=== PATIENT | female | born 1980 | race Caucasian/White ===

== ENCOUNTER → 2017-12-14 19:31 | Outpatient (CLI) | payer OTHER, SELFPAY ==
--- NOTE | 2017-12-14 19:35 | DI.RAD.S_ITS ---
PROCEDURE: XR LUMBAR SPINE 2-3V INDICATIONS: Low back pain TECHNIQUE: 3 views of the lumbar spine were acquired. COMPARISON: None. FINDINGS: Bones: 5 [id number] vertebrae are present. There is normal bony alignment. No vertebral body compression fractures. No suspicious bony lesions. Mild degenerative endplate changes are noted at L3-4 through L5-S1 levels. Soft tissues: Overlying bowel gas pattern is normal. No suspicious soft tissue calcifications. IMPRESSION: Mild degenerative disc disease in mid to lower lumbar spine. No compression fracture or spondylolisthesis. Dictated by: Kevin Mathias M.D. on 12/14/2017 at 20:16 Approved by: Kevin Mathias M.D. on 12/14/2017 at 20:16
== END ==
PROVIDERS: Visit Provider Physician Assistant
DX: M51.36 Other intervertebral disc degeneration, lumbar region (principal)
CPT/HCPCS: 72100

== ENCOUNTER 2018-12-15 09:51 | Emergency (ER) | payer OTHER, SELFPAY ==
[2018-12-15 09:54] VITALS: BP 141/90; PULSE 78; RESP 20; TEMP 36.4; O2SAT 98
--- NOTE | 2018-12-15 09:58 | ED_ITS ---
HPI - General Adult General Chief complaint: Skin/Abscess/Foreign Body Stated complaint: Right Big Toe Pain Time Seen by Provider: 12/15/18 09:54 Source: patient Mode of arrival: ambulatory Limitations: no limitations History of Present Illness HPI narrative: 38-year-old female here for evaluation of approximately 30 days of redness and swelling to the inside aspect of her right great toe. She states that she thinks she has an ingrown toenail. Has not been evaluated in the past for this. Has never had an ingrown toenail in the past. She states that she has tried to take the toe nail out on her own however she is having quite a bit of discomfort even with standing at work. Related Data Previous Rx's Medication Instructions Recorded acetaminophen-codeine 1 tab PO Q6H PRN #7 tab 12/15/18 [Tylenol-Codeine #3] Allergies Allergy/AdvReac Type Severity Reaction Status Date / Time SULFA (sulfonamide) Allergy Severe KENNETH Uncoded 08/11/17 12:05 MT SYNDROME Latex Allergy Intermediate ITCHINESS Uncoded 08/11/17 12:05 Ibuprofen Allergy Mild SMALL Uncoded 08/11/17 12:05 RASHES W/ ITCHING Review of Systems Constitutional Denies fever(s) Musculoskeletal Denies tingling Comments: Pain to the right great toe Integumentary/Breasts Comments: Redness of the right great toe Neurologic Denies tingling Hematologic/Lymphatic Denies easy bleeding and Denies easy bruising FORMERLY [facility], [facility] Medical History Patient denies medical problems (Acute) Social History Smoking Status: Current some day smoker Social History Smoking Status: Current some day smoker Exam Initial Vital Signs Initial Vital Signs: Vital Signs Temperature 97.5 F L 12/15/18 09:54 Pulse Rate 78 12/15/18 09:54 Respiratory Rate 20 12/15/18 09:54 Blood Pressure 141/90 H 12/15/18 09:54 Pulse Oximetry 98 12/15/18 09:54 HENMT Head: normal to inspection and normocephalic Resp Effort & Inspection: normal respiratory effort Cardio Pulses: dorsalis pedis present on the right Skin Other: Redness along the lateral aspect of the right great toe Neuro Sensory Exam: no sensory deficits noted Extrem Other: Patient with redness and swelling to the lateral aspect of the right great toenail Procedures Nerve Block Nerve Block 1: Time out performed: Yes Local Anesthetic: lidocaine 1% Amount of anesthesia used (mL): 8 Side: right Nerve Blocks: other (Toe block) Procedure Successful: Yes Patient Tolerated Procedure: Well Complications: none Misc Procedure Name of Procedure: Ingrown toenail removed Side (if applicable): right Location: Lateral aspect of the right great toe Time out performed: Yes Technique/Description of procedure performed: Patient was anesthetized with approximately 8 cc of 1% lidocaine without epinephrine of the right great toe. The toenail was raised from the nail bed with an elevator. The lateral half of the toenail was then removed. Examination shows complete removal of the toena il. Patient tolerated procedure: Well and No complications Complications: none Course Orders Ordered: Discontinued Medications Lidocaine HCl (Xylocaine 1% (Pf)) 8 ml INJ NOW ONE Stop: 12/15/18 10:03 Last Admin: 12/15/18 10:11 Dose: 8 ml Vital Signs - 8 hr 12/15/18 09:54 Temperature 97.5 F L Pulse Rate 78 Respiratory Rate 20 Blood Pressure 141/90 H Pulse Oximetry 98 Medical Decision Making [facility] Narrative Medical decision making narrative: Patient's history and physical is consistent with an ingrown toenail on the lateral aspect of the right great toe. I did discuss options with the patient to include discharging home on antibiotics, removing the toenail here in the emergency department or discharging her to her primary doctor to have a referral to podiatry. The patient opted to have the toenail removed here in the ER. We did discuss risks and benefits to include pain, recurrence of the ingrown toenail, discoloration/deformity of the toenail upon regrowth. The patient expressed understanding of this. Toenail was removed without complication. Dressing was placed. No indication for antibiotics. Will send home with pain medication. She was given return precautions and follow-up instructions. She expressed understanding and agreement plan. Discharge Plan Departure Patient Disposition: Home Clinical Impression: Ingrowing toenail of right foot Instructions: DI for Ingrown Toenail Removal, DI for Ingrown Toenail Activity Restrictions/Additional Instructions: Take the medications as directed. Recommend you contact the health senior human resources representative here at the hospital at [phone] to help with establishing a primary provider. Return to the emergency department for any new or worsening symptoms. Prescriptions: New acetaminophen-codeine [Tylenol-Codeine #3] 300-30 mg tablet 1 tab PO Q6H PRN (Reason: pain) Qty: 7 RF: 0
[2018-12-15] MEDS: LIDOCAINE 1% (PF) INJ 8 ML INJ (10:11)
--- NOTE | 2018-12-15 11:00 | PC.NURSE ---
in grown toenail for 1.5months. Increase pain, swelling and redness. Pus drained at home.
[2018-12-15 11:07] VITALS: BP 128/76; PULSE 78; RESP 16; O2SAT 100
== END 2018-12-15 11:09 | disposition home or self-care (01) ==
PROVIDERS: Emergency Provider Emergency Medicine
DX: L60.0 Ingrowing nail (principal)
CPT/HCPCS: 11750; 64450; 99282; 99283

== ENCOUNTER → 2019-06-09 16:19 | Outpatient (CLI) | payer OTHER, SELFPAY ==
[2019-06-09 17:58] LABS: Add Manual Diff / Slide Review NO; Basophils Absolute Auto 0 /uL (0-100); Basophils Percent Auto 0.4 % (0-2); Eosinophils Absolute Auto 200 /uL (0-450); Eosinophils Percent Auto 1.3 % (2-4); Hematocrit 38.2 % (36-46); Hemoglobin 12.9 g/dL (12.0-16.0); Lymphocytes Absolute Auto 3200 /uL (1100-4500); Lymphocytes Percent Auto 25.3 % (25-40); Mean Corpuscular HGB Conc 33.9 % (30-36); Mean Corpuscular Hemoglobin 30.6 PG (26-34); Mean Corpuscular Volume 90.5 fL (80-100); Monocytes Absolute Auto 600 /uL (0-900); Monocytes Percent Auto 5.2 % (3-14); Neutrophils Absolute Auto 8500 /uL (1500-7000); Neutrophils Percent Auto 67.8 % (50-75); Platelet Count 297 X10^3/uL (150-400); Red Blood Cell Count 4.22 X10^6/uL (4.0-5.2); Red Cell Distribution Width 13.5 % (11.6-14.8); White Blood Cell Count 12.5 X10^3/uL (4.5-11.0)
[2019-06-09 18:09] LABS: Appearance Urine UA CLOUDY; Bilirubin Urine UA NEGATIVE (NEGATIVE); Color Urine UA YELLOW; Glucose Urine UA NEGATIVE (Negative); Ketones Urine UA NEGATIVE (NEGATIVE); Leukocyte Esterase Urine UA TRACE (NEGATIVE); Nitrite Urine UA NEGATIVE (Negative); Occult Blood Urine UA 2+ (Negative); Protein Urine UA NEGATIVE (Negative); Specific Gravity Urine UA 1.025 (1.000-1.035); Urobilinogen Urine UA 0.2 E.U./dL (0.2)
[2019-06-09 18:10] LABS: Glucose 113 mg/dL (70-100)
[2019-06-09 18:11] LABS: Hemoglobin A1C% w Est Avg Glu 5.4 % (4.0-6.0)
[2019-06-09 18:19] LABS: Prothrombin Time 11.9 SECONDS (10.1-12.7)
[2019-06-09 18:22] LABS: PTT Partial Thromboplastin Tim 28 SECONDS (26.4-36.2)
[2019-06-09 18:23] LABS: pH Urine UA 5.5 (4.5-8.0)
[2019-06-09 18:27] LABS: RBC Urine 1-5/HPF (0-5/HPF); Squamous Epithelial Cell Urine 5-10 /HPF (0-5/HPF); WBC Urine 5-10/HPF (0-5/HPF)
[2019-06-09 18:28] LABS: Amorphous Sediment Urine 2+; Bacteria Urine Occasional (0-1); Mucus Urine 2+ (Negative)
[2019-06-09 18:43] LABS: Hepatitis B Surface Antigen NEGATIVE s/c (NEGATIVE); Rubella Antibody IgG 11.2 IU/mL (>15)
[2019-06-09 19:01] LABS: HIV 1 & 2 Ab/Ag 4th Gen Combo NEGATIVE (NEGATIVE); Hep C Virus Ab w/Reflex Quant NEGATIVE s/c (NEGATIVE)
[2019-06-11 18:17] LABS: RPR Screen Nonreactive (Nonreactive)
[2019-06-13 22:49] LABS: Cardiolipin Ab IgG < 14 GPL; Cardiolipin Ab IgM < 12 MPL; PTT-LA Screen 37 seconds (< OR = 40)
[2019-06-14 10:20] LABS: dRVVT Screen 47 seconds (< OR = 45)
== END ==
DX: Z34.81 Encounter for supervision of other normal pregnancy, first trimester (principal); D68.61 Antiphospholipid syndrome
CPT/HCPCS: 36415; 80055; 81003; 81015; 82947; 83036; 85597; 85610; 85613; 85730; 86147; 86787; 86803; 86850; 86900; 86901; 87086; 87389

== ENCOUNTER 2019-06-11 06:02 | Emergency (ER) | payer OTHER, SELFPAY ==
[2019-06-11 06:10] VITALS: BP 133/75; PULSE 85; RESP 15; TEMP 36.6; O2SAT 99; BMI 36.6
--- NOTE | 2019-06-11 06:53 | DI.US.S_ITS ---
PROCEDURE: US OB <= 14 WEEKS FETUS INDICATIONS: 8 WKS PREG W/BLEED, R/O ECTOPIC/MISCARRIAGE OUTSIDE/PRIOR DATING DATA: Last menstrual period (LMP): 04/14/19. LMP-based estimated date of delivery (LOLI): 01/19/20. First dating scan (date and location): 06/09/19. Estimated date of delivery (LOLI) from first dating scan: 01/19/20. TECHNIQUE: Real-time scanning was performed of the fetus and maternal pelvic organs, with image documentation. COMPARISON: [facility], US, US OB <= 14 WEEKS FETUS, 06/09/2019, 16:11. FINDINGS: Embryo: A single intrauterine is identified. [place]-rump length is well visualized, which measures approximately 1.6 cm, correlating with an estimated gestational age of 8 weeks 0 days. Cardiac motion was detected at 171 beats per minute. A yolk sac is well-visualized. A small subchorionic hemorrhage appears to be present along the superior aspect of the gestational sac measuring 1.3 x 0.6 x 1.5 cm. Maternal organs: There probably is a corpus luteum on the right maternal ovary. The left maternal ovary has been removed. A uterine fibroid is evident. Limited images through the kidneys demonstrate no hydronephrosis. IMPRESSION: 1. Single live intrauterine at 8 weeks 0 days (sonographic LOLI 01/19/20) is concordant with the clinical due dates. 2. Small subchorionic/implantation hemorrhage. Dictated by: Luke Victoria M.D. on 06/11/2019 at 7:38 Approved by: Luke Victoria M.D. on 06/11/2019 at 7:41
--- NOTE | 2019-06-11 07:11 | ED_ITS ---
HPI - General Chief complaint: OB/Uterine Contractions Stated complaint: bleeding heavily/eight weeks Time Seen by Provider: 06/11/19 06:57 Source: patient Mode of arrival: Ambulatory Limitations: no limitations History of Present Illness HPI Narrative: Patient is a 38-year-old female currently 8 weeks presenting with bright red vaginal bleeding which started about midnight last ni ght. She has some mild cramps. She denies any nausea. MD Complaint: abdominal pain and vaginal bleeding Onset (ago): hour(s) Pain Consistency: constant Patient : Yes Related Data Allergies Allergy/AdvReac Type Severity Reaction Status Date / Time SULFA (sulfonamide) Allergy Severe KENNETH Uncoded 06/09/19 15:50 MT SYNDROME Latex Allergy Intermediate ITCHINESS Uncoded 06/09/19 15:50 Ibuprofen Allergy Mild SMALL Uncoded 06/09/19 15:50 RASHES W/ ITCHING Review of Systems Review of Systems Narrative: GENERAL: Denies chills, fatigue, malaise, fever, sweats, travel HEENT: Denies sinus pain, ear pain, sore throat, difficulty swallowing, neck pain RESPIRATORY: Denies dyspnea, cough, wheezing, hemoptysis, sputum. CARDIOVASCULAR: Denies chest pain, palpitations, orthopnea, edema GASTROINTESTINAL: Denies nausea, vomiting, abdominal pain, diarrhea, constipation, melena. : Denies dysuria, frequency, incontinence, hematuria, urinary retention, flank pain. CHAPLAIN RESIDENT: See HPI MUSCULOSKELETAL: Denies weakness, joint pain, or bony pain SKIN: No rash, no erythema, no pruritus NEUROLOGIC: Denies weakness, dizziness, headache, numbness, change in speech, confusion PSYCHIATRIC: No concerning psychosocial issues. 12 point review of systems is negative except for those stated above and HPI PMFSH - Past Medical History Additional medical history: 1. AMA Multip Dx Code : O09.529 - PA initiated today. 2. H/O Gestational Diabetes X 2 's. 3. H/O Induced Hypertension. 4. H/O Antiphospholipid Antibody Syndrome : with first and subsequent loss at 17 weeks with management at . Patient : Yes Exam Initial Vital Signs Initial Vital Signs: Vital Signs Temperature 97.8 F 06/11/19 06:10 Pulse Rate 85 06/11/19 06:10 Respiratory Rate 15 06/11/19 06:10 Blood Pressure 133/75 06/11/19 06:10 Pulse Oximetry 99 06/11/19 06:10 GENERAL: Overweight well-appearing female and in no acute distress. HEENT: Head atraumatic,EOMI, pupils reactive, face symmetric, moist mucous membranes CARDIOVASCULAR: Regular rate and rhythm without murmurs, rubs or gallops. RESPIRATORY: Breath sounds equal bilaterally, no wheezes rales or rhonchi. ABDOMEN: Soft, nontender. Normoactive bowel sounds all 4 quadrants. No guarding or rebound. EXTREMITIES: Normal range of motion, no clubbing or edema. Neurovascularly intact NEUROLOGICAL: Alert and oriented x4.Normal gait and speech. Cranial nerves II through XII grossly intact. SKIN: Warm, dry, no laceration, no petechiae, no rashes or lesions. Course Orders Ordered: ED Orders 06/11/19 06:53 US OB <= 14 weeks fetus Stat 06/11/19 08:19 CMP [Comprehensive Metabolic Panel] Stat Complete Blood Count AUTO DIFF Stat HCG Quantitative /Beta subunit Stat Vital Signs Vital signs: Vital Signs - 8 hr 06/11/19 06:10 06/11/19 09:58 Temperature 97.8 F Pulse Rate 85 80 Respiratory Rate 15 18 Blood Pressure 133/75 149/73 H Pulse Oximetry 99 100 MDM - OB/Uterine Contractions Lab Data Attestation: I reviewed the patient's lab results. Lab results narrative: Records state that she is O positive with negative antibody screen. Result diagrams: 06/11/19 08:19 06/11/19 08:19 Labs: Lab Results 06/11/19 06/11/19 06/11/19 Range/Units 08:19 08:19 08:19 WBC 13.8 H (4.5-11.0) X10^3/uL RBC 4.13 (4.0-5.2) X10^6/uL Hgb 12.4 (12.0-16.0) g/dL Hct 37.1 (36-46) % MCV 89.7 (80-100) fL MCH 30.1 (26-34) PG MCHC 33.6 (30-36) % RDW 13.5 (11.6-14.8) % Plt Count 317 (150-400) X10^3/uL Neut % (Auto) 76.2 H (50-75) % Lymph % (Auto) 17.9 L (25-40) % [place] % (Auto) 4.4 (3-14) % Eos % (Auto) 1.0 L (2-4) % Baso % (Auto) 0.5 (0-2) % Neut # (Auto) 83190 H (6356-8835) /uL Lymph # (Auto) 2500 (0843-2299) /uL [place] # (Auto) 600 (0-900) /uL Eos # (Auto) 100 (0-450) /uL Baso # (Auto) 100 (0-100) /uL Sodium 137 (137-145) mmol/L Potassium 4.3 (3.4-5.1) mmol/L Chloride 102 (98-107) mmol/L Carbon Dioxide 26 (22-32) mmol/L BUN 9 (7-17) mg/dL Creatinine 0.60 (0.52-1.04) mg/dL Estimated GFR > 60.0 (>60) mL/min BUN/Creatinine Ratio 15.0 (6-22) Glucose 111 H (70-100) mg/dL Calcium 9.6 (8.4-10.2) mg/dL Total Bilirubin 0.2 (0.2-1.3) mg/dL AST 20 (14-36) IU/L ALT 13 (<35) IU/L Alkaline Phosphatase 99 (38-126) U/L Total Protein 7.7 (6.3-8.2) g/dL Albumin 4.0 (3.5-5.0) g/dL Globulin 3.7 (1.7-4.1) g/dL Albumin/Globulin Ratio 1.1 (1.0-2.8) HCG, Quant 25858 mIU/mL Point of Care Testing Test Results Positive Urine Dip Bedside Urine Glucose Negative Bedside Urine Bilirubin - Negative Bedside Urine Ketone - Negative Urine Specific [place] 1.015 Bedside Urine Occult Blood ++ Bedside Urine pH 6.0 Bedside Urine Protein - Negative Bedside Urine Urobilinogen - Negative Bedside Urine Nitrite - Negative Bedside Urine Leukocytes - Negative Esterase Imaging Data US - OB: Radiologist's Impression: PROCEDURE: US OB <= 14 WEEKS FETUS INDICATIONS: 8 WKS PREG W/BLEED, R/O ECTOPIC/MISCARRIAGE OUTSIDE/PRIOR DATING DATA: Last menstrual period (LMP): 04/14/19. LMP-based estimated date of delivery (LOLI): 01/19/20. First dating scan (date and location): 06/09/19. Estimated date of delivery (LOLI) from first dating scan: 01/19/20. TECHNIQUE: Real-time scanning was performed of the fetus and maternal pelvic organs, with image documentation. COMPARISON: [facility], US, US OB <= 14 WEEKS FETUS, 06/09/2019, 16:11. FINDINGS: Embryo: A single intrauterine is identified. [place]-rump length is well visualized, which measures approximately 1.6 cm, correlating with an estimated gestational age of 8 weeks 0 days. Cardiac motion was detected at 171 beats per minute. A yolk sac is well-visualized. A small subchorionic hemorrhage appears to be present along the superior aspect of the gestational sac measuring 1.3 x 0.6 x 1.5 cm. Maternal organs: There probably is a corpus luteum on the right maternal ovary. The left maternal ovary has been removed. A uterine fibroid is evident. Limited images through the kidneys demonstrate no hydronephrosis. IMPRESSION: 1. Single live intrauterine at 8 weeks 0 days (sonographic LOLI 01/19/20) is concordant with the clinical due dates. 2. Small subchorionic/implantation hemorrhage. Dictated by: Luke Victoria M.D. on 06/11/2019 at 7:38 MDM Narrative Medical decision making narrative: Patient not needing anything for pain. I have discussed results with both her and her recommend outpatient repeat hCG in 48 hours. Ultrasound is overall reassuring. Discharge Plan Departure Patient Disposition: Home Clinical Impression: , threatened Discharge Date/Time: 06/11/19 09:58 Instructions: DI for Threatened Activity Restrictions/Additional Instructions: *You have been diagnosed with threatened *What to do: At this time you have what is called a subchorionic hemorrhage. This should resolve on its own. However at this time is still need repeat hCG with her primary OBGYN in 48 hours-on 06/13/2019, Dr. Reddy should be able to order this for you. Please call him tomorrow *Continue to take medications as directed vitamins once daily Tylenol 1000 mg every 6 hours if needed for cramping *Follow up with your primary care provider in 2-3 days *Return to ER if you should have increased vaginal bleeding, pain or any new, worsening or concerning symptoms Referrals: Ben Reddy MD [Physician] -
[2019-06-11 08:28] LABS: Add Manual Diff / Slide Review NO; Basophils Absolute Auto 100 /uL (0-100); Basophils Percent Auto 0.5 % (0-2); Eosinophils Absolute Auto 100 /uL (0-450); Hematocrit 37.1 % (36-46); Hemoglobin 12.4 g/dL (12.0-16.0); Lymphocytes Absolute Auto 2500 /uL (1100-4500); Lymphocytes Percent Auto 17.9 % (25-40); Mean Corpuscular HGB Conc 33.6 % (30-36); Mean Corpuscular Hemoglobin 30.1 PG (26-34); Mean Corpuscular Volume 89.7 fL (80-100); Monocytes Absolute Auto 600 /uL (0-900); Monocytes Percent Auto 4.4 % (3-14); Neutrophils Absolute Auto 10500 /uL (1500-7000); Neutrophils Percent Auto 76.2 % (50-75); Platelet Count 317 X10^3/uL (150-400); Red Blood Cell Count 4.13 X10^6/uL (4.0-5.2); Red Cell Distribution Width 13.5 % (11.6-14.8); White Blood Cell Count 13.8 X10^3/uL (4.5-11.0)
[2019-06-11 08:38] LABS: Alanine Aminotransferase 13 IU/L (<35); Albumin Globulin Ratio 1.1 (1.0-2.8); Alkaline Phosphatase 99 U/L (38-126); Aspartate Aminotransferase 20 IU/L (14-36); Bilirubin Total 0.2 mg/dL (0.2-1.3); Blood Urea Nitrogen 9 mg/dL (7-17); Calcium 9.6 mg/dL (8.4-10.2); Carbon Dioxide 26 mmol/L (22-32); Chloride 102 mmol/L (98-107); Estimated Glomerular Filt Rate > 60.0 mL/min (>60); Globulin 3.7 g/dL (1.7-4.1); Glucose 111 mg/dL (70-100); HEMOLYSIS < 15 (0-50); Potassium 4.3 mmol/L (3.4-5.1); Sodium 137 mmol/L (137-145); Total Protein 7.7 g/dL (6.3-8.2)
[2019-06-11 09:20] LABS: HCG Quantitative /Beta subunit 37502 mIU/mL
[2019-06-11 09:58] VITALS: BP 149/73; PULSE 80; RESP 18; O2SAT 100
== END 2019-06-11 09:58 | disposition home or self-care (01) ==
PROVIDERS: Emergency Medicine; Emergency Provider Emergency Medicine
DX: O20.0 Threatened abortion (principal); Z3A.08 8 weeks gestation of pregnancy
CPT/HCPCS: 36415; 76801; 80053; 81003; 81025; 84702; 85025; 99283; 99284

== ENCOUNTER → 2019-06-13 17:16 | Outpatient (CLI) | payer OTHER, SELFPAY ==
[2019-06-13 18:18] LABS: INR 1.1 (0.9-1.3); Prothrombin Time 12.4 SECONDS (10.1-12.7)
[2019-06-18 22:44] LABS: Cardiolipin Ab IgG < 14 GPL; Cardiolipin Ab IgM < 12 MPL; PTT-LA Screen 35 seconds (< OR = 40); dRVVT Screen 39 seconds (< OR = 45)
[2019-06-19 10:02] LABS: Cardiolipin Ab IgA < 11
== END ==
DX: D68.61 Antiphospholipid syndrome (principal); Z11.3 Encounter for screening for infections with a predominantly sexual mode of transmission; Z12.4 Encounter for screening for malignant neoplasm of cervix
CPT/HCPCS: 36415; 85597; 85610; 85613; 85730; 86147

== ENCOUNTER → 2019-07-10 11:41 | Outpatient (CLI) | payer OTHER, SELFPAY | LOC: LAB 11:43 | DX: Z34.81 Encounter for supervision of other normal pregnancy, first trimester (principal); Z3A.12 12 weeks gestation of pregnancy | CPT/HCPCS: 36415; 84163; 84702 ==

== ENCOUNTER → 2019-08-18 11:18 | Outpatient (CLI) | payer OTHER, SELFPAY ==
[2019-08-23 11:04] LABS: Sequential Screen 2nd Trimeste SCREEN NEGATIVE
== END ==
DX: O09.522 Supervision of elderly multigravida, second trimester (principal); Z36.0 Encounter for antenatal screening for chromosomal anomalies; Z3A.18 18 weeks gestation of pregnancy
CPT/HCPCS: 36415; 82105; 82677; 84163; 84702; 86336

== ENCOUNTER → 2019-09-08 09:08 | Outpatient (CLI) | payer OTHER, SELFPAY ==
--- NOTE | 2019-09-08 09:09 | DI.US.S_ITS ---
PROCEDURE: US OB >= 14 WEEKS FETUS INDICATIONS: ANATOMY OUTSIDE/PRIOR DATING DATA: Last menstrual period (LMP): 04/13/19. LMP-based estimated date of delivery (LOLI): 01/19/20. First dating scan (date and location): 07/10/19. Estimated date of delivery (LOLI) from first dating scan: 01/20/20. TECHNIQUE: Real-time scanning was performed of the fetus, with image documentation and biometric measurements. Endovaginal scanning: Performed COMPARISON: None. FINDINGS: General: A single living intrauterine gestation is present. Presentation: Breech Placenta: Placental position is anterior, without previa. Amniotic fluid index: 12.7 cm, normal range is 5-24 cm. heart rate: 158 beats per minute. Maternal cervical canal: 4.3 cm long. Normal lower limit is 2.5 cm. biometrics: Biparietal diameter: 19 weeks 6 days Head circumference: 20 weeks 5 days Abdominal circumference: 21 weeks 4 days Femur length: 21 weeks 2 days Estimated gestational age from initial scan: 20 weeks 6 days Composite gestational age from present scan: 20 weeks 6 days Estimated weight and percentile: 413 g; 69th percentile Measurement variability for biometric dating: +/- 7 days from 14 weeks to 15 weeks 6 days gestation, +/- 10 days from 16 weeks to 21 weeks 6 days gestation, +/- 2 weeks from 22 weeks to 27 weeks 6 days gestation, +/- 3 weeks for 28 weeks gestation or later. weight reference: 4500 g or EFW >90/95% is considered macrosomia or large for gestational age. EFW <10% is small for gestational age. EFW 5% or less is considered intra-uterine growth restriction. Anatomic survey: Neuro: Ventricles are non-dilated at less than 10 mm. Cisterna magna is normal at 3-11 mm. Cerebellum is normal in size and morphology. 8mm right choroid plexus cyst. Nuchal skin fold: Normal at less than 6 mm between 14-21 weeks gestational age. Face: Nose and lips, facial profile are normal. Spine: No evidence for spina bifida. Heart: 4-chambered heart is present. The ventricular outflow tracts are not well visualized and cannot be evaluated. Diaphragm: Diaphragm is intact. Stomach: Left-sided stomach is present. Kidneys: No hydronephrosis. Normal is less than 5 mm in 2nd trimester, less than 7 mm in 3rd trimester. Cord: 3-vessel cord has orthotopic insertion. Bladder: Normal in size. Extremities: All 4 extremities identified. IMPRESSION: 1. Single living intrauterine fetus with appropriate interval growth. 2. Cardiac outflow tracts are not well visualized and cannot be evaluated. 3. 8mm right choroid plexus cyst. 4. anatomic survey otherwise normal. Dictated by: Martita Jones MD, PhD on 09/08/2019 at 11:24 Approved by: Martita Jones MD, PhD on 09/08/2019 at 11:30
== END ==
LOC: US 09:09
PROVIDERS: Referring Provider Obstetrics & Gynecology; Visit Provider Obstetrics & Gynecology
DX: Z36.89 Encounter for other specified antenatal screening (principal); Z3A.20 20 weeks gestation of pregnancy
CPT/HCPCS: 76811

== ENCOUNTER → 2019-11-02 08:54 | Outpatient (CLI) | payer OTHER, SELFPAY ==
[2019-11-02 10:28] LABS: Hematocrit 34.9 % (36-46)
[2019-11-02 10:30] LABS: GTT (PREG) 1 Hour PP 50gm Dose 171 mg/dL (76-139)
== END ==
DX: Z34.82 Encounter for supervision of other normal pregnancy, second trimester (principal); Z3A.25 25 weeks gestation of pregnancy
CPT/HCPCS: 36415; 82950; 85014; 85018

== ENCOUNTER → 2019-12-07 08:03 | Outpatient (CLI) | payer OTHER, SELFPAY ==
[2019-12-07 09:31] LABS: Glucose Fasting Gestational 92 mg/dL (76-95)
[2019-12-07 10:33] LABS: Glucose 1 Hour Gest 185 mg/dL (76-180)
[2019-12-07 11:21] LABS: Glucose Tol Interp,Gestational INTERPRETATION
[2019-12-07 12:09] LABS: Glucose 2 Hour Gest 136 mg/dL (76-155)
[2019-12-07 13:42] LABS: Glucose 3 Hour Gest 127 mg/dL (76-140)
== END ==
DX: O99.810 Abnormal glucose complicating pregnancy (principal)
CPT/HCPCS: 36415; 82951; 82952

== ENCOUNTER → 2019-12-14 11:24 | Outpatient (CLI) | payer OTHER, SELFPAY ==
[2019-12-14 12:39] LABS: Add Manual Diff / Slide Review NO; Basophils Absolute Auto 0 /uL (0-100); Basophils Percent Auto 0.2 % (0-2); Eosinophils Absolute Auto 100 /uL (0-450); Eosinophils Percent Auto 0.6 % (2-4); Hematocrit 35.1 % (36-46); Lymphocytes Absolute Auto 1800 /uL (1100-4500); Lymphocytes Percent Auto 19.8 % (25-40); Mean Corpuscular HGB Conc 34.1 % (30-36); Mean Corpuscular Hemoglobin 31.1 PG (26-34); Mean Corpuscular Volume 91.3 fL (80-100); Monocytes Absolute Auto 500 /uL (0-900); Monocytes Percent Auto 5.6 % (3-14); Neutrophils Absolute Auto 6800 /uL (1500-7000); Neutrophils Percent Auto 73.8 % (50-75); Platelet Count 254 X10^3/uL (150-400); Red Blood Cell Count 3.84 X10^6/uL (4.0-5.2); Red Cell Distribution Width 13.4 % (11.6-14.8); White Blood Cell Count 9.3 X10^3/uL (4.5-11.0)
[2019-12-14 13:07] LABS: Aspartate Aminotransferase 18 IU/L (14-36); BUN Creatinine Ratio 15.6 (6-22); Blood Urea Nitrogen 7 mg/dL (7-17); Estimated Glomerular Filt Rate > 60.0 mL/min (>60); Uric Acid 4.4 mg/dL (2.5-6.2)
== END ==
PROVIDERS: Referring Provider Obstetrics & Gynecology; Visit Provider Obstetrics & Gynecology
DX: O16.9 Unspecified maternal hypertension, unspecified trimester (principal)
CPT/HCPCS: 36415; 84450; 84550; 85025

== ENCOUNTER → 2019-12-22 10:50 | Outpatient (CLI) | payer OTHER, SELFPAY ==
[2019-12-23 08:04] LABS: Strep Grp B PCR NEG for Grp B Strep
== END ==
PROVIDERS: Visit Provider Obstetrics & Gynecology
DX: Z34.83 Encounter for supervision of other normal pregnancy, third trimester (principal); Z3A.36 36 weeks gestation of pregnancy
CPT/HCPCS: 87653

== ENCOUNTER 2019-12-29 10:46 | Observation (INO) | payer OTHER, SELFPAY ==
[2019-12-29 11:46] LABS: Add Manual Diff / Slide Review NO; Basophils Absolute Auto 100 /uL (0-100); Basophils Percent Auto 0.5 % (0-2); Eosinophils Absolute Auto 100 /uL (0-450); Eosinophils Percent Auto 0.7 % (2-4); Hematocrit 34.4 % (36-46); Hemoglobin 11.6 g/dL (12.0-16.0); Lymphocytes Absolute Auto 2100 /uL (1100-4500); Lymphocytes Percent Auto 19.8 % (25-40); Mean Corpuscular HGB Conc 33.8 % (30-36); Mean Corpuscular Hemoglobin 30.8 PG (26-34); Mean Corpuscular Volume 91.1 fL (80-100); Monocytes Absolute Auto 600 /uL (0-900); Monocytes Percent Auto 5.9 % (3-14); Neutrophils Absolute Auto 7600 /uL (1500-7000); Neutrophils Percent Auto 73.1 % (50-75); Platelet Count 237 X10^3/uL (150-400); Red Blood Cell Count 3.77 X10^6/uL (4.0-5.2); Red Cell Distribution Width 13.5 % (11.6-14.8); White Blood Cell Count 10.4 X10^3/uL (4.5-11.0)
[2019-12-29 11:56] LABS: Aspartate Aminotransferase 15 IU/L (14-36); BUN Creatinine Ratio 10.9 (6-22); Blood Urea Nitrogen 6 mg/dL (7-17); Estimated Glomerular Filt Rate > 60.0 mL/min (>60); Uric Acid 3.8 mg/dL (2.5-6.2)
[2019-12-29 12:29] LABS: Creatinine Urine Random 219.2 mg/dL; Protein (Total) Urine Random 7 mg/dL (0-12); Protein Creatinine Ratio Urine 0.03 GRAM/24H
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
== END 2019-12-29 12:45 | disposition home or self-care (01) ==
PROVIDERS: Admitting Provider Obstetrics & Gynecology; PCP Obstetrics & Gynecology; Referring Provider Obstetrics & Gynecology; Visit Provider Obstetrics & Gynecology
DX: O13.3 Gestational [pregnancy-induced] hypertension without significant proteinuria, third trimester (principal); Z3A.37 37 weeks gestation of pregnancy
CPT/HCPCS: 36415; 59025; 82570; 84156; 84450; 84550; 85025; G0378; G0379

== ENCOUNTER 2019-12-31 13:51 | Outpatient (CLI) | payer OTHER, SELFPAY ==
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
== END 2019-12-31 14:30 | disposition home or self-care (01) ==
LOC: LABOR 13:55 → OB 01-01 12:29
PROVIDERS: PCP Obstetrics & Gynecology; Referring Provider Obstetrics & Gynecology; Visit Provider Obstetrics & Gynecology
DX: O47.1 False labor at or after 37 completed weeks of gestation (principal); R51 Headache; Z3A.37 37 weeks gestation of pregnancy
CPT/HCPCS: 59025; G0378; G0379

== ENCOUNTER 2020-01-05 10:48 | Outpatient (CLI) | payer OTHER, SELFPAY ==
[2020-01-05 11:52] LABS: Creatinine Urine Random 216.2 mg/dL; Protein (Total) Urine Random 6 mg/dL (0-12); Protein Creatinine Ratio Urine 0.02 GRAM/24H
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
== END 2020-01-05 12:19 | disposition home or self-care (01) ==
LOC: LABOR 11:32 → OB 01-09 11:45
PROVIDERS: PCP Obstetrics & Gynecology; Referring Provider Obstetrics & Gynecology; Visit Provider Obstetrics & Gynecology
DX: O13.3 Gestational [pregnancy-induced] hypertension without significant proteinuria, third trimester (principal); Z3A.38 38 weeks gestation of pregnancy
CPT/HCPCS: 59025; 59050; 82570; 84156; G0378; G0379

== ENCOUNTER → 2020-01-08 11:22 | Outpatient (CLI) | payer OTHER, SELFPAY ==
[2020-01-09 18:12] LABS: COVID19 Sendout Not Detected (Not Detect)
== END ==
PROVIDERS: PCP Obstetrics & Gynecology; Visit Provider Nurse Practitioner
DX: Z11.59 Encounter for screening for other viral diseases (principal)
CPT/HCPCS: 87635

== ENCOUNTER 2020-01-10 14:50 | Inpatient (IN) | payer OTHER, SELFPAY ==
[2020-01-10 17:00] LABS: Add Manual Diff / Slide Review NO; Basophils Absolute Auto 0 /uL (0-100); Basophils Percent Auto 0.2 % (0-2); Eosinophils Absolute Auto 100 /uL (0-450); Eosinophils Percent Auto 0.7 % (2-4); Hematocrit 34.1 % (36-46); Hemoglobin 11.4 g/dL (12.0-16.0); Lymphocytes Absolute Auto 2000 /uL (1100-4500); Lymphocytes Percent Auto 19.5 % (25-40); Mean Corpuscular HGB Conc 33.5 % (30-36); Mean Corpuscular Hemoglobin 30.7 PG (26-34); Mean Corpuscular Volume 91.7 fL (80-100); Monocytes Absolute Auto 700 /uL (0-900); Monocytes Percent Auto 6.5 % (3-14); Neutrophils Absolute Auto 7600 /uL (1500-7000); Neutrophils Percent Auto 73.1 % (50-75); Platelet Count 267 X10^3/uL (150-400); Red Blood Cell Count 3.72 X10^6/uL (4.0-5.2); Red Cell Distribution Width 13.7 % (11.6-14.8); White Blood Cell Count 10.3 X10^3/uL (4.5-11.0)
[2020-01-10 17:22] VITALS: BP 133/74
[2020-01-10 17:31] LABS: Aspartate Aminotransferase 18 IU/L (14-36); BUN Creatinine Ratio 20.8 (6-22); Blood Urea Nitrogen 10 mg/dL (7-17); Estimated Glomerular Filt Rate > 60.0 mL/min (>60); Uric Acid 3.8 mg/dL (2.5-6.2)
[2020-01-10] MEDS: DINOPROSTONE VAG (CERVIDIL) 10 MG VAG (18:16)
[2020-01-10] MEDS: LACTATED RINGERS 1,000 ML 100 ML IV (19:02)
[2020-01-10 21:21] VITALS: BP 125/69; PULSE 74
[2020-01-10] MEDS: LABETALOL 100 MG TABLET PO (21:21)
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
[2020-01-11] MEDS: LACTATED RINGERS 1,000 ML 100 ML IV (10:15)
[2020-01-11] MEDS: OXYTOCIN PREMIX 30 UNIT/500 ML PLAST..BAG IV (10:39)
--- NOTE | 2020-01-11 13:49 | PM.OBPNLAB ---
Date/Time Date Patient Seen: 01/11/20 Time Patient Seen: 13:49 Pain Control Pain control: tolerating well Comments: Patient comfortable Pelvic Exam Dilation (cm): 1 Effacement (%): 80 station: -3 Amniotic membrane status: Intact Contractions Pitocin rate (mU/min): 12 Contraction frequency (min): 3 Contraction pattern: Regular Status status: Category l Heart Rate Baseline: 135 Monitor Accelerations: Present Monitor Decelerations: Absent Monitor Variability: Moderate Assessment and Plan Assessment: induction ongoing Plan: continuous present management Comments: Attempted Rockwell balloon placement, Rockwell bulb could not be placed. Plan to continue Pitocin until this evening, will reassess further cervical ripening overnight.
--- NOTE | 2020-01-11 18:09 | PM.OBPNLAB ---
Date/Time Date Patient Seen: 01/11/20 Time Patient Seen: 18:09 Pain Control Pain control: tolerating well Comments: Sleeping through contractions Pelvic Exam Dilation (cm): 1 Effacement (%): 80 station: -3 Amniotic membrane status: Intact Comments: Chicas balloon placed (non latex) with 50ccs saline Contractions Pitocin rate (mU/min): 0 Contraction frequency (min): 3 Contraction pattern: Regular Status status: Category ll Heart Rate Baseline: 135 Monitor Accelerations: Present Monitor Decelerations: Variable Monitor Variability: Moderate Comments: rare variables with +scalp stim, moderate variability and accelerations Assessment and Plan Assessment: induction ongoing Plan: other Comments: Given minimal cervical change with pitocin today with frequent contractions, patient requires further cervical ripening. We will proceed with oral cytotec and a transcervical chicas bulb overnight.
[2020-01-11] MEDS: miSOPROStoL 25 MCG TABLET 50 MCG PO ×2 (19:09→23:08)
[2020-01-12] MEDS: miSOPROStoL 25 MCG TABLET 50 MCG PO (03:17)
--- NOTE | 2020-01-12 07:57 | PM.OBPNLAB ---
Date/Time Date Patient Seen: 01/12/20 Time Patient Seen: 07:57 Pain Control Pain control: tolerating well Comments: 132/67, HR 79 Pelvic Exam Dilation (cm): 3 Effacement (%): 80 station: -3 Amniotic membrane status: Intact Comments: Rockwell bulb fell out between 1 and 3 AM. Patient received 3x PO cytotec overnight, is Contractions Contractions on admission: regular Contraction frequency (min): 4 Contraction pattern: Regular Status status: Category ll Heart Rate Baseline: 145 Monitor Accelerations: Present Monitor Decelerations: Late Comments: Patient having intermittent and highly positional late decelerations in the setting of +scalp stim, +mod variability, +accels. Assessment and Plan Assessment: induction ongoing Comments: This patient has a favorable cervix this AM and is for pitocin augmentation. We discussed the late decelerations and that she requires pitocin to contract and progress, but that this would be closely monitored and may not be tolerated by the baby. The patient is aware, and we plan to proceed with pitocin per protocol this AM.
[2020-01-12] MEDS: LACTATED RINGERS 1,000 ML 100 ML IV ×2 (08:54→17:49)
[2020-01-12] MEDS: OXYTOCIN PREMIX 30 UNIT/500 ML PLAST..BAG IV (08:54)
[2020-01-12] MEDS: LABETALOL 100 MG TABLET PO (08:54)
--- NOTE | 2020-01-12 10:49 | PM.OBPNLAB ---
Date/Time Date Patient Seen: 01/12/20 Time Patient Seen: 10:30 Pain Control Pain control: tolerating well Pelvic Exam Dilation (cm): 3 Effacement (%): 80 station: -3 Amniotic membrane status: Intact Contractions Pitocin rate (mU/min): 0 Contraction frequency (min): 4 Contraction pattern: Regular Status status: Category ll Heart Rate Baseline: 135 Monitor Accelerations: Absent Monitor Decelerations: Late Monitor Variability: Minimal Comments: pitocin turned off, variability recovering Assessment and Plan Assessment: induction ongoing Plan: continuous present management Comments: This patient is not making cervical change, with recurrent late decelerations and minimal variability when the pitocin is titrated up. Discussed risks of ongoing induction with patient vs proceeding to c section. Will allow fetus to recover and continue low dose pitocin augmentation.
--- NOTE | 2020-01-12 15:00 | PM.OBPNLAB ---
Date/Time Date Patient Seen: 01/12/20 Time Patient Seen: 15:00 Pain Control Pain control: tolerating well Pelvic Exam Dilation (cm): 3 Effacement (%): 80 station: -3 Amniotic membrane status: Intact Comments: posterior Contractions Pitocin rate (mU/min): 0 Contraction frequency (min): 4 Contraction pattern: Regular Status status: Category ll Heart Rate Baseline: 140 Monitor Accelerations: Absent Monitor Decelerations: Late Monitor Variability: Minimal Assessment and Plan Plan: Comments: This patient presented for induction of labor for gHTN. She has a cat 2 EFM on pitocin, unable to tolerate induction and with no cervical change. We discussed the risks of compromise with continued induction, especially considering the lack of cervical change. We discussed the risks of section including hemorrhage, infection, and damage to bowel and bladder, including risks in further pregnancies. The patient vocalized understanding, and informed consent was obtained.
--- NOTE | 2020-01-12 15:16 | PM.PREOP ---
Pre-operative Note COVID-19 COVID-19 status: Negative Result date/Date tested (Pos, Neg/Pending): 01/08/20 Interval Note History & Physical reviewed/Exam performed by Physician: Yes Changes to H&P: No
[2020-01-12] MEDS: AZITHROMYCIN 500 MG in DEXTROSE 5% IN WATER 250 ML IV (15:38)
--- NOTE | 2020-01-12 16:02 | SUR.OPER ---
Supine on Padded OR bed, head on pillow, safety belt at thigh, arms secured on padded arm boards at <90 degrees abduction. Bump under right buttock. Legs uncrossed with pillow under knees, gel pad to heels, tape over blanket to lower legs.
--- NOTE | 2020-01-12 16:18 | SUR.OPER ---
viable baby boy born at 1609, placenta delivered at 1612, 8/9, placenta and cord blood sent to OB with OB nurse
[2020-01-12 16:53] VITALS: BP 102/72; PULSE 77; RESP 15; TEMP 35.9; O2SAT 99
--- NOTE | 2020-01-12 16:56 | PM.OP.1 ---
Operative Date/Time/Diagnoses Date of procedure: 01/12/20 Time of procedure: 15:59 Pre-op diagnosis: intolerance of labor Post-op diagnosis: same Procedure & Clinicians Procedure: primary section Same procedure as scheduled: Yes Indications: intolerance of labor Surgeon: Leslye Avitia Solutions Manager: Ida Pierre Anesthesia Type: Spinal Operative Notes Findings: Normal right ovary and tube, left ovary and tube surgically absent. Normal uterus. Male in cephalic presentation, weight 8#3, Apgars 8 and 9. Closure Type: primary Specimen(s): none sent Applied: catheter Estimated Blood Loss (mL): 750 Procedure in detail: IVF 750ccs UOP 100ccs yellow urine EBL 750ccs Findings: Male in cephalic presentation, Apgars 8+9, weight 8+3, normal uterus, normal right tube and ovary, left ovary and tube surgically absent. Procedures: The patient was taken to the operating room where spinal anesthesia was placed and found to be adequate. She was prepped and draped in the normal sterile fashion in the dorsal supine position with a leftward tilt. A Pfannenstiel skin incision was made with a scalpel and carried through to the underlying layer of fascia. The fascia was incised in the midline and the incision extended laterally with Medina scissors. The superior aspect of this incision was grasped with Rashard clamps, elevated, and the underlying rectus muscles dissected off bluntly and with curved Medina scissors. Attention was then turned to the inferior aspect of this incision which, in a similar fashion, was grasped, tented up with the Rashard clamps, and the rectus muscles dissected off with curved Medina scissors. The rectus muscles were then in the midline, and the peritoneum identified, tented up, and entered sharply with Metzenbaum scissors. The peritoneal incision was extended superiorly and inferiorly with good visualization of the bladder. The bladder blade was inserted and the vesico uterine peritoneum identified, grasped with pickups, and entered sharply with the Metzenbaum scissors. This incision was extended laterally, and the bladder flap created digitally. The bladder blade was then reinserted and the lower uterine segment incised in transverse fashion with the scalpel. The uterine incision was bluntly extended laterally. The bladder blade was removed, and the 's head delivered with assistance from a vacuum. After 45 seconds of delayed cord clamping, the cord was clamped and cut. The nose and mouth were suctioned as needed with a bulb syringe, and the infant was handed off to awaiting pediatricians. The placenta was then removed manually, and the uterus was exteriorized and cleared of all clots and debris. The uterine incision was repaired with 1-0 chromic in a running, locked fashion a 2nd layer of the same suture was used to obtain excellent hemostasis. The uterus was returned to the abdomen, and the gutters were cleared of all clots and debris. The bladder flap was closed with 2-0 Vicryl, and the fascia reapproximated with 0 Vicryl in a running fashion. The subcutaneous layer was placed with 3 0 Vicryl in an interrupted fashion and the skin was closed with 4-0 biosyn in a running fashion. The patient tolerated the procedure well sponge lap and needle counts were correct x2. 2 g of Ancef and 500 mg of azithromycin were given at commencement of the case. The patient was taken to the recovery room in stable condition. Complications: none Post-operative Condition: stable Disposition: PACU Plan for aftercare: Transfer to center for routine postoperative care
[2020-01-12 16:58] VITALS: BP 97/69; PULSE 85; RESP 18; TEMP 35.9; O2SAT 100
[2020-01-12 17:03] VITALS: BP 115/69; PULSE 70; RESP 12; TEMP 35.6; O2SAT 99
[2020-01-12 17:09] VITALS: BP 102/72; PULSE 75; RESP 17; TEMP 35.7; O2SAT 98
[2020-01-12] MEDS: KETOROLAC 30 MG/ML VIAL IV ×2 (17:42→23:51)
[2020-01-12 23:51] VITALS: TEMP 36.9
[2020-01-13] MEDS: LACTATED RINGERS 1,000 ML 100 ML IV (00:33)
[2020-01-13] MEDS: KETOROLAC 30 MG/ML VIAL IV ×2 (05:37→12:03)
[2020-01-13 06:33] LABS: Add Manual Diff / Slide Review NO; Basophils Absolute Auto 100 /uL (0-100); Basophils Percent Auto 0.9 % (0-2); Eosinophils Absolute Auto 100 /uL (0-450); Eosinophils Percent Auto 0.9 % (2-4); Hematocrit 27.6 % (36-46); Hemoglobin 9.1 g/dL (12.0-16.0); Lymphocytes Absolute Auto 2900 /uL (1100-4500); Lymphocytes Percent Auto 20.7 % (25-40); Mean Corpuscular HGB Conc 32.9 % (30-36); Mean Corpuscular Hemoglobin 30.3 PG (26-34); Monocytes Absolute Auto 1000 /uL (0-900); Monocytes Percent Auto 7.3 % (3-14); Neutrophils Absolute Auto 9700 /uL (1500-7000); Neutrophils Percent Auto 70.2 % (50-75); Platelet Count 204 X10^3/uL (150-400); Red Blood Cell Count 2.99 X10^6/uL (4.0-5.2); White Blood Cell Count 13.8 X10^3/uL (4.5-11.0)
[2020-01-13] MEDS: DOCUSATE 250 MG CAPSULE PO (08:44)
[2020-01-13] MEDS: LANOLIN OINT 7 GM 1 APPLIC TOP (08:44)
--- NOTE | 2020-01-13 09:46 | P.PNOB_ITS ---
Subjective - OB Subjective Patient comments: no complaints, pain well controlled, tolerating diet and flatus present baby status: doing well [place] feeding status: exclusively breast feeding Narrative: This patient is postop day 1 status post a primary section for intolerance of labor, having been induced for gestational hypertension. She is meeting postoperative goals Date Patient Seen: 01/13/20 Time Patient Seen: 09:46 Interval history: The patient reports feeling well this morning, no dizziness or chest pain, no headaches, no visual changes, good incisional pain control. Has tolerated p.o., is ambulating, is currently mid voiding trial, has mild to moderate lochia, has passed flatus. Discussed staying until tomorrow morning. Exam Vital Signs (past 8 hours): 127/63, HR 101 Oxygen Delivery Method Room Air Const General: cooperative, healthy appearing and comfortable Other: Resting in bed, totaling baby Resp Effort & Inspection: normal respiratory effort Auscultation: clear to auscultation bilaterally Cardio Rate: regular rate Rhythm: regular rhythm GI Palpation: soft and No tender Other: Incision clean, dry, intact, covered by bandage. Fundus firm and below you. Skin General: no rashes or lesions noted Extrem General: normal to inspection Objective Labs Result Diagrams: 01/13/20 06:20 01/10/20 16:10 Labs: Laboratory Results - last 24 hr 01/13/20 06:20 WBC 13.8 H RBC 2.99 L Hgb 9.1 L Hct 27.6 L MCV 92.0 MCH 30.3 MCHC 32.9 RDW 14.0 Plt Count 204 Neut % (Auto) 70.2 Lymph % (Auto) 20.7 L [place] % (Auto) 7.3 Eos % (Auto) 0.9 L Baso % (Auto) 0.9 Neut # (Auto) 9700 H Lymph # (Auto) 2900 [place] # (Auto) 1000 H Eos # (Auto) 100 Baso # (Auto) 100 Assessment & Plan Plan day: 1 plan OB: routine postop care Comments: This patient is recovering appropriately on postop day 1 status post primary for intolerance of labor in the setting of gestational hypertension. She is meeting postoperative goals appropriately, with a hemoglobin drop consistent with intraoperative blood loss and no signs of ongoing bleeding. We discussed Lovenox versus ongoing SCDs while in bed, the patient will be for SCD use until ambulating regularly. Otherwise routine care. Holding labetalol given normal blood pressures. Time Spent With Patient Time: Total time spent is greater than 50% in coordination of care (as documented) at patient's floor/unit and/or counseling patient: Time with patient: less than 15 minutes
[2020-01-13] MEDS: OXYCODONE IR 5 MG TABLET PO (23:55)
[2020-01-14] MEDS: OXYCODONE IR 5 MG TABLET PO ×2 (03:50→09:43)
[2020-01-14 07:51] VITALS: BP 102/72; PULSE 75; RESP 17; TEMP 36.9
[2020-01-14] MEDS: DOCUSATE 250 MG CAPSULE PO (09:43)
--- NOTE | 2020-01-14 09:49 | PM.OBPN.1 ---
Subjective - OB Subjective Patient comments: no complaints, incisional pain, tolerating diet and flatus present baby status: doing well [place] feeding status: exclusively bottle feeding Narrative: Patient reports that she has worsened pain control after stopping IV toradol, as she has not gotten motrin due to an ibuprofen allergy. She reports a fever of 99-100 overnight and passage of one clot, with resolution of her pain since. She is ambulating, tolerating PO, voiding, passing flatus, and has mild to moderate lochia. Date Patient Seen: 01/14/20 Time Patient Seen: 09:49 Exam Vital Signs (past 8 hours): 109/63, HR 101, T 98.9 Oxygen Delivery Method Room Air Const General: cooperative, healthy appearing, comfortable and well developed Resp Effort & Inspection: normal respiratory effort Auscultation: clear to auscultation bilaterally Cardio Rate: regular rate Rhythm: regular rhythm GI Palpation: soft and tender (mild fundal tenderness) Other: fundus firm, well below u. Incision c/d/i Skin General: no rashes or lesions noted Extrem General: normal to inspection Objective Labs Result Diagrams: 01/13/20 06:20 01/10/20 16:10 Assessment & Plan Plan day: 2 plan OB: routine postop care Comments: This patient is meeting goals appropriately, but has worsening pain control without NSAIDs. We discussed addition of PO toradol for up to 5 days, and staggering this with PO tylenol with oxycodone for breakthrough bleeding. Will reassess for discharge this afternoon. Time Spent With Patient Time: Total time spent is greater than 50% in coordination of care (as documented) at patient's floor/unit and/or counseling patient: Time with patient: 15-24 minutes
--- NOTE | 2020-01-14 09:57 | P.DS_ITS ---
Discharge Providers Provider Date of admission: 01/10/20 14:50 Discharge Date: 01/14/20 Primary care physician: Leslye Avitia MD Consults: 01/12/20 17:23 Consult to [employer] Application Administrator Routine Comment: Discharge provider: Leslye Avitia MD Summary Hospital Course Date Patient Seen: 01/14/20 Time Patient Seen: 09:15 Procedures: primary section for intolerance of labor. Hospital Course: This patient was admitted for induction of labor in the setting of gestational hypertension. She underwent cervical ripening with cervidil, oral cytotec, and a transcervical chicas balloon before being started on pitocin. station never descended past -3, and the patient had recurrent late decelerations with pitocin augmentation. She was taken for primary section, where the fetus was found to be presenting with a hand elevating the vertex from the cervix. Her recovery was uneventful, and she was discharged on POD#2 with routine precautions and follow up. Time Spent with Patient Time attestation: Total time spent providing and/or coordinating discharge servi marvin: Objective Labs Result Diagrams: 01/13/20 06:20 01/10/20 16:10 Exam Vital Signs (past 8 hours): Oxygen Delivery Method Room Air Discharge Plan Discharge Plan Patient Disposition: Home Discharge orders & Medications Prescriptions: New oxycodone 5 mg tablet 5 mg PO Q6H PRN (Reason: pain) Qty: 20 RF: 0 acetaminophen 325 mg capsule 650 mg PO Q6H PRN (Reason: pain) Qty: 30 RF: 0 Discontinued prenat.vits,edvin,gsy-qbiz-drygf Tablet 1 tab PO DAILY RF: 0 aspirin 81 mg tablet,chewable 81 mg PO BID RF: 0 labetalol 100 mg tablet 100 mg PO BID Qty: 60 RF: 0 labetalol 100 mg tablet RF: 0 Follow up/Referrals: Leslye Avitia MD [Primary Care Provider] - 1 Week (incision check Call [phone] with any questions or concerns) Diet/Activity/Treatments Diet: Regular Activity: Nothing in the vagina for 6 weeks. Avoid lifting more than 10 lbs for 6 weeks. If you have increasing bleeding soaking more than 2 pads/hr for 2 carmen rs, fevers, chills, nausea, vomiting, headaches, visual changes, or any other symptoms or concerns, call the clinic number or come to the emergency room. Skin/Wound/Dressing Care Report to your healthcare provider any signs of infection, such as:: chills, fever, night sweats, increased pain, unusual drainage and unusual redness Visit Report/Discharge Packet Instructions: DI for Stand Alone Forms: Discharge: Care Visit Report Forms: Patient Portal/API, Stroke Signs & Symptoms Discharge Data Primary Care Provider: Leslye Avitia Discharges patient from system. Discharge Date/Time: 01/14/20 16:00
[2020-01-14] MEDS: KETOROLAC 10 MG TABLET PO (10:32)
== END 2020-01-14 16:00 | disposition home or self-care (01) | DRG 788 ==
PROVIDERS: Admitting Provider Obstetrics & Gynecology; PCP Obstetrics & Gynecology; Referring Provider Obstetrics & Gynecology; Visit Provider Obstetrics & Gynecology
PROC: 10D00Z1 Extraction of Products of Conception, Low, Open Approach (ICD-10-PCS; CPT 59514; principal; 2020-01-12 15:30)
DX: O13.4 Gestational [pregnancy-induced] hypertension without significant proteinuria, complicating childbirth (principal); O76 Abnormality in fetal heart rate and rhythm complicating labor and delivery; Z37.0 Single live birth; Z3A.38 38 weeks gestation of pregnancy
CPT/HCPCS: 36415; 59050; 59200; 59510; 59514; 76815; 84450; 84550; 85025; 86850; 86900; 86901; G0379; J1885; J2274; J2405; J2590